=== PATIENT | male | born 1950 | race Caucasian/White ===

== ENCOUNTER → 2017-10-08 08:12 | Outpatient (CLI) | payer OTHER, SELFPAY ==
[2017-10-08 09:00] LABS: Cholesterol 182 mg/dL (140-199); HDL Cholesterol 54 mg/dL (40-60); LDL Cholesterol Calculated 102 mg/dL (<100); Triglycerides 131 mg/dL (35-150)
== END ==
PROVIDERS: PCP Internal Medicine; Visit Provider Internal Medicine
DX: E78.00 Pure hypercholesterolemia, unspecified (principal); Z53.9 Procedure and treatment not carried out, unspecified reason
CPT/HCPCS: 36415; 80061

== ENCOUNTER → 2017-10-08 10:47 | Outpatient (CLI) | payer OTHER, SELFPAY ==
--- NOTE | 2017-10-08 | DI.US.S_ITS ---
PROCEDURE: US ARTERIAL DUPLEX UE RT COMPARISON: None. INDICATIONS: SENSATION DISTURBANCE RT HAND FINDINGS: Triphasic waveforms with normal flow velocities are seen within the right subclavian, axillary, brachial, and radial artery. Biphasic waveform with normal flow velocity is seen within the right distal ulnar artery. IMPRESSION: No evidence of arterial insufficiency to the right upper extremity. Dictated by: Lorenza Pizarro M.D. on 10/08/2017 at 12:33 Approved by: Lorenza Pizarro M.D. on 10/08/2017 at 12:34
== END ==
PROVIDERS: Family Provider Internal Medicine; PCP Internal Medicine; Visit Provider Internal Medicine
DX: R20.8 Other disturbances of skin sensation (principal)
CPT/HCPCS: 36415; 80061; 93931

== ENCOUNTER → 2019-07-07 13:07 | Outpatient (CLI) | payer MEDICARE, OTHER, SELFPAY ==
--- NOTE | 2019-07-07 | DI.US.S_ITS ---
PROCEDURE: US CAROTID DOPPLER BI INDICATIONS: TIA TECHNIQUE: Color and pulse Doppler interrogation was performed of both carotid systems, with image documentation and velocity measurements. COMPARISON: None. FINDINGS: Stenosis calculations are based on SRU (Society of Radiologists in Ultrasound) criteria. Right side: Brachial blood pressure: 120/68 mm Hg. Common carotid artery peak systolic velocity: 100 cm/sec. Internal carotid artery peak systolic velocity: 78 cm/sec. Internal carotid artery end diastolic velocity: 29 cm/sec. External carotid artery peak systolic velocity: 78 cm/sec. ICA/CCA peak systolic ratio: 0.8. Mi scale imaging description: Moderate plaque Percent internal carotid artery stenosis: Less than 50%. Vertebral artery: Flow direction is antegrade. Left side: Brachial blood pressure: 123/70 mm Hg. Common carotid artery peak systolic velocity: 77 cm/sec. Internal carotid artery peak systolic velocity: 78 cm/sec. Internal carotid artery end diastolic velocity: 30 External carotid artery peak systolic velocity: 96 cm/sec. ICA/CCA peak systolic ratio: 1.0. Mi scale imaging description: Moderate scattered plaque. Percent internal carotid artery stenosis: Less than 50%. Vertebral artery: Flow direction is antegrade. IMPRESSION: Less than 50% bilateral internal carotid artery stenosis. Dictated by: Rayshawn MELCHOR Interpreted: Fredo Cosme MD on 07/07/2019 at 17:28 Approved by: Fredo Cosme M.D. on 07/07/2019 at 17:53
== END ==
PROVIDERS: Family Provider Internal Medicine; PCP Family Medicine; Referring Provider Family Medicine; Visit Provider Family Medicine
DX: I65.23 Occlusion and stenosis of bilateral carotid arteries (principal)
CPT/HCPCS: 93880

== ENCOUNTER → 2022-04-23 09:52 | Outpatient (CLI) | payer MEDICARE, OTHER, SELFPAY ==
--- NOTE | 2022-04-23 09:54 | DI.RAD.S_ITS ---
PROCEDURE: XR CHEST 2V INDICATIONS: Cough TECHNIQUE: 2 views of the chest were acquired. COMPARISON: [facility], , CHEST 2 VIEW, 10/11/2010, 14:58. FINDINGS: Surgical changes and devices: None. Lungs and pleura: Lungs are clear. No pleural effusions or pneumothorax. Mediastinum: Mediastinal contours are normal. Heart size is normal. Bones and chest wall: No suspicious bony abnormalities. Soft tissues appear unremarkable. IMPRESSION: No acute cardiopulmonary findings. Dictated by: Rocío Light M.D. on 04/23/2022 at 10:12 Approved by: Rocío Light M.D. on 04/23/2022 at 10:12
== END ==
PROVIDERS: Family Provider Internal Medicine; PCP Family Medicine; Referring Provider Registered Nurse; Visit Provider Registered Nurse
DX: R05.1 Acute cough (principal)
CPT/HCPCS: 0241U; 71046

== ENCOUNTER → 2022-04-23 10:22 | Outpatient (CLI) | payer MEDICARE, OTHER, SELFPAY ==
[2022-04-23 11:09] LABS: Influenza A - CEPHEID Flu A NEGATIVE (NEGATIVE); Influenza B - CEPHEID Flu B NEGATIVE (NEGATIVE); Respiratory Syncytial Virus Negative (Negative)
[2022-04-23 11:16] LABS: COVID-19 CEPHEID 4-PLEX PCR Negative (Negative)
== END ==
PROVIDERS: Family Provider Internal Medicine; PCP Family Medicine; Visit Provider Registered Nurse
DX: R05.9 Cough, unspecified (principal)
CPT/HCPCS: 0241U

== ENCOUNTER 2023-11-03 13:00 | Outpatient (RCR) | payer MEDICARE, OTHER, SELFPAY ==
--- NOTE | 2023-09-08 16:32 | PT.OIE ---
Current Diagnoses Pain in left shoulder (09/08/23) Other enthesopathies, not elsewhere classified (09/08/23) Abnormal posture (09/08/23) Weakness (09/08/23) Visit Care Team Role Provider Type Dashawn Reese MD Family Provider Non-Staff Primary Care Provider Specialty: Medical Address: [address] [place] [address], [id number] Email: Joo Hernandez MD Attending Provider Physician Referring Provider Specialty: Orthopedics Orthopedic Surgery Address: [address] [place] [address], [id number] Email: [email or web address] [facility] Initial Evaluation PT-OP-A Visit Information Start: 09/07/23 16:42 Freq: Status: Active Protocol: Document 09/08/23 15:19 [facility]AK (Rec: 09/08/23 16:43 [facility]AK [id number]) Out-Patient Physical Therapy Visit Information Visit Information Visit Type Initial Evaluation Visit Start Time 15:20 Visit Stop Time 16:10 Visit Number 1 Evaluation Information Evaluation Date 09/08/23 PT-OP-B Current Condition Start: 09/07/23 16:42 Freq: Status: Active Protocol: Document 09/08/23 15:19 SAK (Rec: 09/08/23 16:43 [facility] [id number]) Current Condition History of Current Condition Onset Date 9 month Current Complaints left shoulder pain History of Current Condition Last fall gradual onset left shoulder pain, initially noticed when was doing gardening trimming hedge and also noted he couldn't throw without pain. Saw orthopedist in April, had injection. Started doing exercises; wall slide, has gained ability to reach across his body. At this point reaching overhead, behind his back; can do everything but it hurts. States painful to reach back to put his arm in a coat Can' t lay on his left side. Had prior frozen shoulder right and reports has been trying some of exercises he previously did for that; states first repetition of an ex painful, tends to loosen as he goes. Pain interrupts his sleep. has foam roller, he hasn't used Prior Treatments and Tests x-ray; orthopedist stated no tear Treatment Goals Patient/Caregiver Goals Regain full active, painfree movement of his left shoulder. Prior Functional Status Baseline Function- ADL's Independent Baseline Function- Work/School indep activities around the house Baseline Function- Recreation/Hobbies gardening, backpacking indep no pain Current Functional Impairments (Reported) Functional Limitations- ADL's painful Functional Limitations- Work/School painful Functional Limitations- Recreation/ painful Hobbies PT-OP-C Subjective Start: 09/07/23 16:42 Freq: Status: Active Protocol: Document 09/08/23 15:19 [facility] (Rec: 09/08/23 16:43 [facility] [id number]) OP-PT Pain Assessment Location Left Shoulder Intensity 7 PT-OP-H Neuro Start: 09/07/23 16:42 Freq: Status: Active Protocol: Document 09/08/23 15:19 [facility] (Rec: 09/08/23 16:43 [facility] [id number]) Sensation Evaluation Gross Sensation Gross Sensation WNL PT-OP-J Posture/Palpation/Skin Start: 09/07/23 16:42 Freq: Status: Active Protocol: Document 09/08/23 15:19 [facility] (Rec: 09/08/23 16:43 [facility] [id number]) Posture Evaluation Position Sitting Head/C-Spine Posture Forward Head T-Spine Posture Increased Kyphosis L-Spine Posture Increased Lordosis Shoulder Posture (L) Rounded,(R) Rounded Scapula Posture (L) Protracted,(R) Protracted Arm Posture (L) Internally Rotated,(R) Internally Rotated Palpation Assessment Location upper trap Palpation Location left greater than right Palpation Findings Soft Tissue Tightness left shoulder Palpation Location ant,lat Palpation Findings Tenderness PT-OP-K Range of Motion Start: 09/07/23 16:42 Freq: Status: Active Protocol: Document 09/08/23 15:19 [facility] (Rec: 09/08/23 16:43 [facility] [id number]) Cervical Spine Range of Motion Cervical Spine Active ROM Limitations Soft Tissue Tightness,Bony Restriction Comments mod decrease all motions Shoulder Goniometric Range of Motion Shoulder Left Shoulder ROM WFL Yes Flexion 142 Extension 23 Abduction 150 Horizontal Abduction 85 Horizontal Adduction 15 External Rotation at 45 degrees 38 Abduction Internal Rotation Behind Back (text) L5 Right Shoulder ROM WFL Yes Internal Rotation Behind Back (text) T12 Shoulder ROM Limitations Shoulder ROM Limitations Soft Tissue Tightness,Pain PT-OP-L Special Tests Start: 09/07/23 16:42 Freq: Status: Active Protocol: Document 09/08/23 15:19 [facility] (Rec: 09/08/23 16:43 [facility] [id number]) Special Tests Shoulder Special Tests Elevation Impingement Test Results + Speed's Biceps Test Results - Drop Arm Rotator Cuff Test Results - PT-OP-Q Treatments Start: 09/07/23 16:42 Freq: Status: Active Protocol: Document 09/08/23 15:19 [facility] (Rec: 09/08/23 16:43 [facility] [id number]) Self-Care/Home Management Treatment Education Patient Education Home Exercise Program,Pain Management,Posture Other Education neutral posture and impaired posture contributions to dec shoulder function HEP; issued written HO and L2 TB Activities Self-Care/Home Management Activities thumbs forward alignment when taking walks PT-OP-T Assessment and Plan Start: 09/07/23 16:42 Freq: Status: Active Protocol: Document 09/08/23 15:19 [facility] (Rec: 09/08/23 16:43 [facility] [id number]) Physical Therapy Assessment Rehab Potential Rehabilitation Potential Good Evaluation Complexity Number of Personal Factors/Comorbidities 1-2 Number of Body Systems Impaired 3 Clinical Presentation at Evaluation Evolving Impairments Impairments Pain,Posture,ROM,Strength Goals Four Impairment weakness Short Term Goal (STG) Patient to be instructed in individualized, progressive HEP for purposes of strengthening and restoring normal scapulohumeral rhythm for left shoulder function STG Duration 10/25/23 Usp Goal (LTG) Patient to demonstrate 5/5 muscle strength left shoulder with normal scapulohumeral rhythm for restored left shoulder function LTG Duration 12/09/23 Three Impairment postural impairment Impairment forward head, rounded shoulders, IR josephine shoulders left greater than right Short Term Goal (STG) Patient to be instructed in neutral posture and exercises for postural correction STG Duration 10/25/23 Usp Goal (LTG) Patient will be independent and compliant with HEP and demonstrate improved posture statically and dynamically with function LTG Duration 12/09/23 Two Impairment activity intolerance Impairment Quickdash disability index score 42% Short Term Goal (STG) Decrease score by at least 50% as measure of improved activity tolerance and function STG Duration 10/25/23 Coin Machine Supervisor Goal (LTG) Decrease score by at least 75% as measure of improved activity tolerance and function LTG Duration 12/09/23 One Impairment pain left shoulder as high as 8/10 Short Term Goal (STG) Decrease pain to no greater than 4/10 with all usual activities including reaching overhead, behind his back, and donning his coat STG Duration 10/25/23 Usp Goal (LTG) Decrease pain to no greater than 2/10 with all usual activities including reaching overhead, behind his back, and donning his coat. LTG Duration 12/09/23 Assessment Summary Assessment Patient presents with function -limiting pain and ROM restrictions left shoulder in a capusular pattern. ROM ER 38, IR 58, flex 142, hor add 25 with some impingment symptoms. He has postural impairment of forward head and rounded shoulders and weakness in posterior chain shoulder musculature, worst in lower traps. Feel he would benefit from PT to decrease his pain and improve his shoulder ROM, strength, and function. Patient was instructed in neutral posture and affects of impaired posture on shoulder function. Instructed in initial HEP and issued written HO and L2 TB. POC was discussed and patient was in agreement. Physical Therapy Plan Frequency and Duration Frequency of Treatment 2x/Week Duration of treatment (weeks) 12 Plan of Care Start Date 09/08/23 Plan of Care End Date 12/09/23 Therapeutic Interventions Therapeutic Interventions Home Exercise Program,Joint Mobilizations,Manual Therapy, Neuromuscular Re-education, Patient/Caregiver Education, Self-Care/Home Management,Soft Tissue Mobilization,Taping, Therapeutic Activities, Therapeutic Exercises Modalities Cold Pack/Ice Massage,Electric Stimulation,Hot Packs, Infrared Therapy,Iontophoresis ,Ultrasound Next Visit Focus/Plan Next Note Type Treatment Note Next Visit Plan ASsess response to first visit , review HEP. Supine foam roller exercises for pec stretching and theraband strengthening for shoulder (T' s and Y's)
--- NOTE | 2023-09-08 16:33 | PT.OPPOC ---
Physical, Occupational & Speech Therapy At [facility] Current Diagnoses Pain in left shoulder (09/08/23) Other enthesopathies, not elsewhere classified (09/08/23) Abnormal posture (09/08/23) Weakness (09/08/23) Visit Care Team Role Provider Type Dashawn Reese MD Family Provider Non-Staff Primary Care Provider Specialty: Medical Address: [address] [place] [address], [phone] Email: Joo Hernandez MD Attending Provider Physician Referring Provider Specialty: Orthopedics Orthopedic Surgery Address: [address] [place] [address], [id number] Email: [email or web address] Plan Of Care PT-OP-T Assessment and Plan Start: 09/07/23 16:42 Freq: Status: Active Protocol: Document 09/08/23 15:19 [facility] (Rec: 09/08/23 16:43 [facility] [id number]) Physical Therapy Assessment Rehab Potential Rehabilitation Potential Good Evaluation Complexity Number of Personal Factors/Comorbidities 1-2 Number of Body Systems Impaired 3 Clinical Presentation at Evaluation Evolving Impairments Impairments Pain,Posture,ROM,Strength Goals Four Impairment weakness Short Term Goal (STG) Patient to be instructed in individualized, progressive HEP for purposes of strengthening and restoring normal scapulohumeral rhythm for left shoulder function STG Duration 10/25/23 Mannequin Decorator Goal (LTG) Patient to demonstrate 5/5 muscle strength left shoulder with normal scapulohumeral rhythm for restored left shoulder function LTG Duration 12/09/23 Three Impairment postural impairment Impairment forward head, rounded shoulders, IR josephine shoulders left greater than right Short Term Goal (STG) Patient to be instructed in neutral posture and exercises for postural correction STG Duration 10/25/23 Half-Way Goal (LTG) Patient will be independent and compliant with HEP and demonstrate improved posture statically and dynamically with function LTG Duration 12/09/23 Two Impairment activity intolerance Impairment Quickdash disability index score 42% Short Term Goal (STG) Decrease score by at least 50% as measure of improved activity tolerance and function STG Duration 10/25/23 Mannequin Decorator Goal (LTG) Decrease score by at least 75% as measure of improved activity tolerance and function LTG Duration 12/09/23 One Impairment pain left shoulder as high as 8/10 Short Term Goal (STG) Decrease pain to no greater than 4/10 with all usual activities including reaching overhead, behind his back, and donning his coat STG Duration 10/25/23 Mannequin Decorator Goal (LTG) Decrease pain to no greater than 2/10 with all usual activities including reaching overhead, behind his back, and donning his coat. LTG Duration 12/09/23 Assessment Summary Assessment Patient presents with function -limiting pain and ROM restrictions left shoulder in a capusular pattern. ROM ER 38, IR 58, flex 142, hor add 25 with some impingment symptoms. He has postural impairment of forward head and rounded shoulders and weakness in posterior chain shoulder musculature, worst in lower traps. Feel he would benefit from PT to decrease his pain and improve his shoulder ROM, strength, and function. Patient was instructed in neutral posture and affects of impaired posture on shoulder function. Instructed in initial HEP and issued written HO and L2 TB. POC was discussed and patient was in agreement. Physical Therapy Plan Frequency and Duration Frequency of Treatment 2x/Week Duration of treatment (weeks) 12 Plan of Care Start Date 09/08/23 Plan of Care End Date 12/09/23 Therapeutic Interventions Therapeutic Interventions Home Exercise Program,Joint Mobilizations,Manual Therapy, Neuromuscular Re-education, Patient/Caregiver Education, Self-Care/Home Management,Soft Tissue Mobilization,Taping, Therapeutic Activities, Therapeutic Exercises Modalities Cold Pack/Ice Massage,Electric Stimulation,Hot Packs, Infrared Therapy,Iontophoresis ,Ultrasound Next Visit Focus/Plan Next Note Type Treatment Note Next Visit Plan ASsess response to first visit , review HEP. Supine foam roller exercises for pec stretching and theraband strengthening for shoulder (T' s and Y's) Plan of Care Dates Plan of Care Start Date 09/08/23 Plan of Care End Date 12/09/23 Electronically Signed by: Flory Moya PT 09/14/23 2084 If you are in agreement with this Plan of Care, please return a signed and dated copy. I have reviewed this Plan of Care and certify that the skilled therapy services above are required to meet the patient?s needs. Physician Signature Date Printed Name and Credentials Clinical Instructor Signature Printed Name and Credentials
--- NOTE | 2023-09-15 16:12 | PT.OTN ---
Current Diagnoses Pain in left shoulder (09/15/23) Other enthesopathies, not elsewhere classified (09/15/23) Abnormal posture (09/15/23) Weakness (09/15/23) Physical Therapy Treatment Note PT-OP-A Visit Information Start: 09/07/23 16:42 Freq: Status: Active Protocol: Document 09/15/23 13:42 SAK (Rec: 09/15/23 14:34 SAK [id number]) Out-Patient Physical Therapy Visit Information Visit Information Visit Type Treatment Note Visit Start Time 13:42 Visit Stop Time 14:31 Visit Number 2 Evaluation Information Evaluation Date 09/08/23 PT-OP-B Current Condition Start: 09/07/23 16:42 Freq: Status: Active Protocol: Document 09/15/23 13:42 SAK (Rec: 09/15/23 14:34 SAK [id number]) Current Condition History of Current Condition Onset Date 9 month Current Complaints left shoulder pain History of Current Condition Last fall gradual onset left shoulder pain, initially noticed when was doing gardening trimming hedge and also noted he couldn't throw without pain. Saw orthopedist in April, had injection. Started doing exercises; wall slide, has gained ability to reach across his body. At this point reaching overhead, behind his back; can do everything but it hurts. States painful to reach back to put his arm in a coat Can' t lay on his left side. Had prior frozen shoulder right and reports has been trying some of exercises he previously did for that; states first repetition of an ex painful, tends to loosen as he goes. Pain interrupts his sleep. has foam roller, he hasn't used Prior Treatments and Tests x-ray; orthopedist stated no tear Treatment Goals Patient/Caregiver Goals Regain full active, painfree movement of his left shoulder. PT-OP-C Subjective Start: 09/07/23 16:42 Freq: Status: Active Protocol: Document 09/15/23 13:42 SAK (Rec: 09/15/23 14:34 SAK [id number]) OP-PT Subjective Patient Comments Patient Comments Pain has increased, not sure if doing exercises correctly. PT-OP-H Neuro Start: 09/07/23 16:42 Freq: Status: Active Protocol: Document 09/08/23 15:19 SAK (Rec: 09/08/23 16:43 SAK [id number]) Sensation Evaluation Gross Sensation Gross Sensation WNL PT-OP-J Posture/Palpation/Skin Start: 09/07/23 16:42 Freq: Status: Active Protocol: Document 09/08/23 15:19 [facility] (Rec: 09/08/23 16:43 [facility] [id number]) Posture Evaluation Position Sitting Head/C-Spine Posture Forward Head T-Spine Posture Increased Kyphosis L-Spine Posture Increased Lordosis Shoulder Posture (L) Rounded,(R) Rounded Scapula Posture (L) Protracted,(R) Protracted Arm Posture (L) Internally Rotated,(R) Internally Rotated Palpation Assessment Location upper trap Palpation Location left greater than right Palpation Findings Soft Tissue Tightness left shoulder Palpation Location ant,lat Palpation Findings Tenderness PT-OP-K Range of Motion Start: 09/07/23 16:42 Freq: Status: Active Protocol: Document 09/08/23 15:19 [facility] (Rec: 09/08/23 16:43 [facility] [id number]) Cervical Spine Range of Motion Cervical Spine Active ROM Limitations Soft Tissue Tightness,Bony Restriction Comments mod decrease all motions Shoulder Goniometric Range of Motion Shoulder Left Shoulder ROM WFL Yes Flexion 142 Extension 23 Abduction 150 Horizontal Abduction 85 Horizontal Adduction 15 External Rotation at 45 degrees 38 Abduction Internal Rotation Behind Back (text) L5 Right Shoulder ROM WFL Yes Internal Rotation Behind Back (text) T12 Shoulder ROM Limitations Shoulder ROM Limitations Soft Tissue Tightness,Pain PT-OP-L Special Tests Start: 09/07/23 16:42 Freq: Status: Active Protocol: Document 09/08/23 15:19 [facility] (Rec: 09/08/23 16:43 [facility] [id number]) Special Tests Shoulder Special Tests Elevation Impingement Test Results + Speed's Biceps Test Results - Drop Arm Rotator Cuff Test Results - PT-OP-Q Treatments Start: 09/07/23 16:42 Freq: Status: Active Protocol: Document 09/15/23 13:42 [facility] (Rec: 09/15/23 14:34 [facility] [id number]) Therapeutic Exercises Supine Exercises serratus punch Comments next session D2 Supine Exercise Name flex Resistance L1 TB Equipment Used foam roller Reps/Minutes 10x shoulder flex Supine Exercise Name 90 to max ROM (painfree) Equipment Used foam roller Reps/Minutes 10x5 Comments cues for painfree ROM pec stretch Equipment Used foam roller Reps/Minutes 2x30 Comments pillows under left UE at less than 90 Prone Exercises Y Comments unable T Comments unable I Reps/Minutes 10x Comments cues for scap retr Sidelying Exercises open book Reps/Minutes 5x Comments cues for painfree ROM Sitting Exercises seated ball roll shld flex Reps/Minutes 5x5 pulleys Sitting Exercise Name flexion and scaption Reps/Minutes 10x Standing Exercises sh ER Reps/Minutes 10x Comments cues to slow down row, sh ext Equipment Used L2 TB Reps/Minutes 10x Comments cues to perform slower, emphasis on scapular retraction Self-Care/Home Management Treatment Education Patient Education Home Exercise Program,Pain Management,Posture,Safety PT-OP-R Modalities Start: 09/07/23 16:42 Freq: Status: Active Protocol: Document 09/15/23 13:42 [facility] (Rec: 09/15/23 16:10 [facility] [id number]) Infrared Treatment Treatment Left Anterior Shoulder Body Position Sitting Continuous/Pulsed Continuous Program or Protocal chronic soft tissue pain and stiffness Comments 5 locations PT-OP-T Assessment and Plan Start: 09/07/23 16:42 Freq: Status: Active Protocol: Document 09/15/23 13:42 [facility] (Rec: 09/15/23 14:34 [facility] [id number]) Physical Therapy Assessment Goals Four Impairment weakness Short Term Goal (STG) Patient to be instructed in individualized, progressive HEP for purposes of strengthening and restoring normal scapulohumeral rhythm for left shoulder function STG Duration 10/25/23 Intermediate Goal (LTG) Patient to demonstrate 5/5 muscle strength left shoulder with normal scapulohumeral rhythm for restored left shoulder function LTG Duration 12/09/23 Three Impairment postural impairment Impairment forward head, rounded shoulders, IR josephine shoulders left greater than right Short Term Goal (STG) Patient to be instructed in neutral posture and exercises for postural correction STG Duration 10/25/23 Intermediate Goal (LTG) Patient will be independent and compliant with HEP and demonstrate improved posture statically and dynamically with function LTG Duration 12/09/23 Two Impairment activity intolerance Impairment Quickdash disability index score 42% Short Term Goal (STG) Decrease score by at least 50% as measure of improved activity tolerance and function STG Duration 10/25/23 Intermediate Goal (LTG) Decrease score by at least 75% as measure of improved activity tolerance and function LTG Duration 12/09/23 One Impairment pain left shoulder as high as 8/10 Short Term Goal (STG) Decrease pain to no greater than 4/10 with all usual activities including reaching overhead, behind his back, and donning his coat STG Duration 10/25/23 Lag Screwer Goal (LTG) Decrease pain to no greater than 2/10 with all usual activities including reaching overhead, behind his back, and donning his coat. LTG Duration 12/09/23 Assessment Summary Assessment Patient appears to have been overdoing exercise and doing a couple exercises that have been exacerbating his pain; after education and review patient demonstrated good understanding of need to not push into pain or overdo activities and exercises. Added supine T and Y over foam roller to HEP, corrected open book, added seated ball roll and wall slide. Trial cold laser adjunct to treatment. Physical Therapy Plan Frequency and Duration Frequency of Treatment 2x/Week Duration of treatment (weeks) 12 Plan of Care Start Date 09/08/23 Plan of Care End Date 12/09/23 Therapeutic Interventions Therapeutic Interventions Home Exercise Program,Joint Mobilizations,Manual Therapy, Neuromuscular Re-education, Patient/Caregiver Education, Self-Care/Home Management,Soft Tissue Mobilization,Taping, Therapeutic Activities, Therapeutic Exercises Modalities Cold Pack/Ice Massage,Electric Stimulation,Hot Packs, Infrared Therapy,Iontophoresis ,Ultrasound Next Visit Focus/Plan Next Note Type Treatment Note Next Visit Plan Review HEP, progression of HEP as tolerated for ROM and strengthening left shoulder. Consider kiniesiotape for pain management and postural correction.
--- NOTE | 2023-09-22 12:12 | PT.OTN ---
Current Diagnoses Pain in left shoulder (09/22/23) Other enthesopathies, not elsewhere classified (09/22/23) Abnormal posture (09/22/23) Weakness (09/22/23) Physical Therapy Treatment Note PT-OP-A Visit Information Start: 09/07/23 16:42 Freq: Status: Active Protocol: Document 09/22/23 11:14 SAK (Rec: 09/22/23 12:11 [facility] [id number]) Out-Patient Physical Therapy Visit Information Visit Information Visit Type Treatment Note Visit Start Time 11:14 Visit Number 3 Evaluation Information Evaluation Date 09/08/23 PT-OP-B Current Condition Start: 09/07/23 16:42 Freq: Status: Active Protocol: Document 09/22/23 11:14 SAK (Rec: 09/22/23 12:11 [facility] [id number]) Current Condition History of Current Condition Onset Date 9 month Current Complaints left shoulder pain History of Current Condition Last fall gradual onset left shoulder pain, initially noticed when was doing gardening trimming hedge and also noted he couldn't throw without pain. Saw orthopedist in April, had injection. Started doing exercises; wall slide, has gained ability to reach across his body. At this point reaching overhead, behind his back; can do everything but it hurts. States painful to reach back to put his arm in a coat Can' t lay on his left side. Had prior frozen shoulder right and reports has been trying some of exercises he previously did for that; states first repetition of an ex painful, tends to loosen as he goes. Pain interrupts his sleep. has foam roller, he hasn't used Prior Treatments and Tests x-ray; orthopedist stated no tear Treatment Goals Patient/Caregiver Goals Regain full active, painfree movement of his left shoulder. PT-OP-C Subjective Start: 09/07/23 16:42 Freq: Status: Active Protocol: Document 09/22/23 11:14 SAK (Rec: 09/22/23 12:11 [facility] [id number]) OP-PT Subjective Patient Comments Patient Comments Making some progress, not sure if doing foam roller exercises correctly, needs pictures. Most pain when do something sudden. Still pain with laying on left side. A little easier reaching back to put coat on. Has been taking Alleve 2x/day for 1 week; that may be helping. PT-OP-H Neuro Start: 09/07/23 16:42 Freq: Status: Active Protocol: Document 09/08/23 15:19 [facility] (Rec: 09/08/23 16:43 [facility] [id number]) Sensation Evaluation Gross Sensation Gross Sensation WNL PT-OP-J Posture/Palpation/Skin Start: 09/07/23 16:42 Freq: Status: Active Protocol: Document 09/08/23 15:19 [facility] (Rec: 09/08/23 16:43 [facility] [id number]) Posture Evaluation Position Sitting Head/C-Spine Posture Forward Head T-Spine Posture Increased Kyphosis L-Spine Posture Increased Lordosis Shoulder Posture (L) Rounded,(R) Rounded Scapula Posture (L) Protracted,(R) Protracted Arm Posture (L) Internally Rotated,(R) Internally Rotated Palpation Assessment Location upper trap Palpation Location left greater than right Palpation Findings Soft Tissue Tightness left shoulder Palpation Location ant,lat Palpation Findings Tenderness PT-OP-K Range of Motion Start: 09/07/23 16:42 Freq: Status: Active Protocol: Document 09/08/23 15:19 [facility] (Rec: 09/08/23 16:43 [facility] [id number]) Cervical Spine Range of Motion Cervical Spine Active ROM Limitations Soft Tissue Tightness,Bony Restriction Comments mod decrease all motions Shoulder Goniometric Range of Motion Shoulder Left Shoulder ROM WFL Yes Flexion 142 Extension 23 Abduction 150 Horizontal Abduction 85 Horizontal Adduction 15 External Rotation at 45 degrees 38 Abduction Internal Rotation Behind Back (text) L5 Right Shoulder ROM WFL Yes Internal Rotation Behind Back (text) T12 Shoulder ROM Limitations Shoulder ROM Limitations Soft Tissue Tightness,Pain PT-OP-L Special Tests Start: 09/07/23 16:42 Freq: Status: Active Protocol: Document 09/08/23 15:19 [facility] (Rec: 09/08/23 16:43 [facility] [id number]) Special Tests Shoulder Special Tests Elevation Impingement Test Results + Speed's Biceps Test Results - Drop Arm Rotator Cuff Test Results - PT-OP-Q Treatments Start: 09/07/23 16:42 Freq: Status: Active Protocol: Document 09/22/23 11:14 [facility] (Rec: 09/22/23 12:11 [facility] [id number]) Gym Equipment Cable Column (Body Solid) scap shrug Resistance 30# Reps/Time 10x5 lat pull Resistance 30# Reps/Time 10x5 Therapeutic Exercises Supine Exercises serratus punch Resistance 3# Reps/Minutes 10x D2 Supine Exercise Name flex Resistance L1 TB Equipment Used foam roller Reps/Minutes 10x shoulder flex Supine Exercise Name 90 to max ROM (painfree) Equipment Used foam roller, wand Reps/Minutes 10x5 Comments cues for painfree ROM pec stretch Equipment Used foam roller Reps/Minutes 2x30 Prone Exercises Y Equipment Used therapy ball Reps/Minutes 10x T Equipment Used therapy ball Reps/Minutes 10x Standing Exercises sh ER Reps/Minutes 10x row, sh ext Equipment Used L2 TB Reps/Minutes 10x Comments cues for scapular activation Manual Therapy Treatment Taping left shoulder Skin Inspection intact Comments I strip T10 to anterior shoulder I strip mid scap to facil retraction Self-Care/Home Management Treatment Education Patient Education Home Exercise Program,Pain Management,Posture,Safety PT-OP-R Modalities Start: 09/07/23 16:42 Freq: Status: Active Protocol: Document 09/15/23 13:42 [facility] (Rec: 09/15/23 16:10 [facility] [id number]) Infrared Treatment Treatment Left Anterior Shoulder Body Position Sitting Continuous/Pulsed Continuous Program or Protocal chronic soft tissue pain and stiffness Comments 5 locations PT-OP-T Assessment and Plan Start: 09/07/23 16:42 Freq: Status: Active Protocol: Document 09/22/23 11:14 [facility] (Rec: 09/22/23 12:11 [facility] [id number]) Physical Therapy Assessment Goals Four Impairment weakness Short Term Goal (STG) Patient to be instructed in individualized, progressive HEP for purposes of strengthening and restoring normal scapulohumeral rhythm for left shoulder function STG Duration 10/25/23 Halfway Goal (LTG) Patient to demonstrate 5/5 muscle strength left shoulder with normal scapulohumeral rhythm for restored left shoulder function LTG Duration 12/09/23 Three Impairment postural impairment Impairment forward head, rounded shoulders, IR josephine shoulders left greater than right Short Term Goal (STG) Patient to be instructed in neutral posture and exercises for postural correction STG Duration 10/25/23 Retail Management Keyholder Goal (LTG) Patient will be independent and compliant with HEP and demonstrate improved posture statically and dynamically with function LTG Duration 12/09/23 Two Impairment activity intolerance Impairment Quickdash disability index score 42% Short Term Goal (STG) Decrease score by at least 50% as measure of improved activity tolerance and function STG Duration 10/25/23 Retail Management Keyholder Goal (LTG) Decrease score by at least 75% as measure of improved activity tolerance and function LTG Duration 12/09/23 One Impairment pain left shoulder as high as 8/10 Short Term Goal (STG) Decrease pain to no greater than 4/10 with all usual activities including reaching overhead, behind his back, and donning his coat STG Duration 10/25/23 Halfway Goal (LTG) Decrease pain to no greater than 2/10 with all usual activities including reaching overhead, behind his back, and donning his coat. LTG Duration 12/09/23 Progress Towards Goals Progress Towards Goals Progressing Toward Goals Assessment Summary Assessment Progress toward goals, patient demonstrating improved scapular activation and awareness. Trial KT tape for postural correction today. Issued updated written HO. Good compliance to HEP. Physical Therapy Plan Frequency and Duration Frequency of Treatment 2x/Week Duration of treatment (weeks) 12 Plan of Care Start Date 09/08/23 Plan of Care End Date 12/09/23 Therapeutic Interventions Therapeutic Interventions Home Exercise Program,Joint Mobilizations,Manual Therapy, Neuromuscular Re-education, Patient/Caregiver Education, Self-Care/Home Management,Soft Tissue Mobilization,Taping, Therapeutic Activities, Therapeutic Exercises Modalities Cold Pack/Ice Massage,Electric Stimulation,Hot Packs, Infrared Therapy,Iontophoresis ,Ultrasound Next Visit Focus/Plan Next Note Type Treatment Note Next Visit Plan Assess response to today's session, review HEP and progress as indicated. Consider Body Blade.
--- NOTE | 2023-10-07 11:13 | PT.OTN ---
Current Diagnoses Pain in left shoulder (10/07/23) Other enthesopathies, not elsewhere classified (10/07/23) Abnormal posture (10/07/23) Weakness (10/07/23) Physical Therapy Treatment Note PT-OP-A Visit Information Start: 09/07/23 16:42 Freq: Status: Active Protocol: Document 10/07/23 10:33 SP (Rec: 10/07/23 11:29 SP [id number]) Out-Patient Physical Therapy Visit Information Visit Information Visit Type Treatment Note Visit Start Time 10:33 Visit Stop Time 11:13 Visit Number 4 Number of PRODUCT DEVELOPMENT SCIENTIST Visits 1 Evaluation Information Evaluation Date 09/08/23 PT-OP-B Current Condition Start: 09/07/23 16:42 Freq: Status: Active Protocol: Document 09/22/23 11:14 SAK (Rec: 09/22/23 12:11 SAK [id number]) Current Condition History of Current Condition Onset Date 9 month Current Complaints left shoulder pain History of Current Condition Last fall gradual onset left shoulder pain, initially noticed when was doing gardening trimming hedge and also noted he couldn't throw without pain. Saw orthopedist in April, had injection. Started doing exercises; wall slide, has gained ability to reach across his body. At this point reaching overhead, behind his back; can do everything but it hurts. States painful to reach back to put his arm in a coat Can' t lay on his left side. Had prior frozen shoulder right and reports has been trying some of exercises he previously did for that; states first repetition of an ex painful, tends to loosen as he goes. Pain interrupts his sleep. has foam roller, he hasn't used Prior Treatments and Tests x-ray; orthopedist stated no tear Treatment Goals Patient/Caregiver Goals Regain full active, painfree movement of his left shoulder. PT-OP-C Subjective Start: 09/07/23 16:42 Freq: Status: Active Protocol: Document 10/07/23 10:33 SP (Rec: 10/07/23 11:29 SP [id number]) OP-PT Subjective Patient Comments Patient Comments Does HEP 1st thing in Am with all HOs. Wants to review form with few ex. Does resistance 3x/wk then flexibliity next day. Wants to return to weights previously performed requested trial some today for proper form and proper wt to start. Was previously using 5 # DB. PT-OP-H Neuro Start: 09/07/23 16:42 Freq: Status: Active Protocol: Document 09/08/23 15:19 [facility] (Rec: 09/08/23 16:43 [facility] [id number]) Sensation Evaluation Gross Sensation Gross Sensation WNL PT-OP-J Posture/Palpation/Skin Start: 09/07/23 16:42 Freq: Status: Active Protocol: Document 09/08/23 15:19 [facility] (Rec: 09/08/23 16:43 [facility] [id number]) Posture Evaluation Position Sitting Head/C-Spine Posture Forward Head T-Spine Posture Increased Kyphosis L-Spine Posture Increased Lordosis Shoulder Posture (L) Rounded,(R) Rounded Scapula Posture (L) Protracted,(R) Protracted Arm Posture (L) Internally Rotated,(R) Internally Rotated Palpation Assessment Location upper trap Palpation Location left greater than right Palpation Findings Soft Tissue Tightness left shoulder Palpation Location ant,lat Palpation Findings Tenderness PT-OP-K Range of Motion Start: 09/07/23 16:42 Freq: Status: Active Protocol: Document 09/08/23 15:19 [facility] (Rec: 09/08/23 16:43 [facility] [id number]) Cervical Spine Range of Motion Cervical Spine Active ROM Limitations Soft Tissue Tightness,Bony Restriction Comments mod decrease all motions Shoulder Goniometric Range of Motion Shoulder Left Shoulder ROM WFL Yes Flexion 142 Extension 23 Abduction 150 Horizontal Abduction 85 Horizontal Adduction 15 External Rotation at 45 degrees 38 Abduction Internal Rotation Behind Back (text) L5 Right Shoulder ROM WFL Yes Internal Rotation Behind Back (text) T12 Shoulder ROM Limitations Shoulder ROM Limitations Soft Tissue Tightness,Pain PT-OP-L Special Tests Start: 09/07/23 16:42 Freq: Status: Active Protocol: Document 09/08/23 15:19 [facility] (Rec: 09/08/23 16:43 [facility] [id number]) Special Tests Shoulder Special Tests Elevation Impingement Test Results + Speed's Biceps Test Results - Drop Arm Rotator Cuff Test Results - PT-OP-Q Treatments Start: 09/07/23 16:42 Freq: Status: Active Protocol: Document 10/07/23 10:33 SP (Rec: 10/07/23 11:29 SP [id number]) Therapeutic Exercises Supine Exercises D2 Supine Exercise Name flex and ext Resistance L1>3 eyak green TB Equipment Used foam roller Reps/Minutes 10x each shoulder flex Supine Exercise Name 1. FF 2. HABD 3. Ws (ER/IR then into Ys/return) 4. DB Resistance 1-3. TB #3 eyak green 4. 3# DB FF, HABD Equipment Used foam roller along spine Reps/Minutes x15 reps each Comments cues for painfree ROM little slower pacing pec stretch Equipment Used foam roller Reps/Minutes 30 Comments cued breath Standing Exercises IR ROM Standing Exercise Name assessed behind back approx T9 Equipment Used Next trial fortunato vs towel Comments cued reach across back 1st then help up with towel DB Standing Exercise Name 1. ABD to 90 deg 2. bent over fly Side bilateral Resistance ABD 1-2# DB, bent over fly 2# DB Equipment Used mirror for self feedback head/ spinal posture Reps/Minutes 5 reps -pnfree tolerance Comments cued elongated posturing with chin tuck neutral spine wall posture Standing Exercise Name HEP HOs review Reps/Minutes 30 SH x2 reps Comments cued spine roll up, LS toward wall, Ys off wall Standing Exercise Name HEP HOs review Side bilateral Resistance Tb #3 eyak green Reps/Minutes x10 Comments good form, improved confidence PT-OP-R Modalities Start: 09/07/23 16:42 Freq: Status: Active Protocol: Document 09/15/23 13:42 SAK (Rec: 09/15/23 16:10 SAK [id number]) Infrared Treatment Treatment Left Anterior Shoulder Body Position Sitting Continuous/Pulsed Continuous Program or Protocal chronic soft tissue pain and stiffness Comments 5 locations PT-OP-T Assessment and Plan Start: 09/07/23 16:42 Freq: Status: Active Protocol: Document 10/07/23 10:33 SP (Rec: 10/07/23 11:29 SP [id number]) Physical Therapy Assessment Goals Four Impairment weakness Short Term Goal (STG) Patient to be instructed in individualized, progressive HEP for purposes of strengthening and restoring normal scapulohumeral rhythm for left shoulder function STG Duration 10/25/23 Director Life Goal (LTG) Patient to demonstrate 5/5 muscle strength left shoulder with normal scapulohumeral rhythm for restored left shoulder function LTG Duration 12/09/23 Three Impairment postural impairment Impairment forward head, rounded shoulders, IR josephine shoulders left greater than right Short Term Goal (STG) Patient to be instructed in neutral posture and exercises for postural correction STG Duration 10/25/23 Director Life Goal (LTG) Patient will be independent and compliant with HEP and demonstrate improved posture statically and dynamically with function LTG Duration 12/09/23 Two Impairment activity intolerance Impairment Quickdash disability index score 42% Short Term Goal (STG) Decrease score by at least 50% as measure of improved activity tolerance and function STG Duration 10/25/23 Director Life Goal (LTG) Decrease score by at least 75% as measure of improved activity tolerance and function LTG Duration 12/09/23 One Impairment pain left shoulder as high as 8/10 Short Term Goal (STG) Decrease pain to no greater than 4/10 with all usual activities including reaching overhead, behind his back, and donning his coat STG Duration 10/25/23 Residential Goal (LTG) Decrease pain to no greater than 2/10 with all usual activities including reaching overhead, behind his back, and donning his coat. LTG Duration 12/09/23 Assessment Summary Assessment Pt progressing in pnfree ROM and resisted ther ex today. Cues for slower pacing supine foam roller ther ex, body positioning during wall posture and form with ability to add resistance Ys off wall. He reports no pain and feels good to be progressing return to prior ex today. Only new added was ABD 90 deg /c ER TB #3 supine over foam roller then W<>Ys found great to help increase rotation range over head. This will support putting things up on shelves. Physical Therapy Plan Frequency and Duration Frequency of Treatment 2x/Week Duration of treatment (weeks) 12 Plan of Care Start Date 09/08/23 Plan of Care End Date 12/09/23 Therapeutic Interventions Therapeutic Interventions Home Exercise Program,Joint Mobilizations,Manual Therapy, Neuromuscular Re-education, Patient/Caregiver Education, Self-Care/Home Management,Soft Tissue Mobilization,Taping, Therapeutic Activities, Therapeutic Exercises Modalities Cold Pack/Ice Massage,Electric Stimulation,Hot Packs, Infrared Therapy,Iontophoresis ,Ultrasound Next Visit Focus/Plan Next Note Type Treatment Note Next Visit Plan Assess response to last tx, review PT HEP and worked on progresion with some past self ex supine and standing. PT POC: Consider Body Blade. Trial forearm plank to incorporate WB and core.
--- NOTE | 2023-11-03 13:00 | PT.OTN ---
Current Diagnoses Pain in left shoulder (11/03/23) Other enthesopathies, not elsewhere classified (11/03/23) Abnormal posture (11/03/23) Weakness (11/03/23) Physical Therapy Treatment Note PT-OP-A Visit Information Start: 09/07/23 16:42 Freq: Status: Active Protocol: Document 11/03/23 13:00 SAK (Rec: 11/03/23 13:08 [facility] [id number]) Out-Patient Physical Therapy Visit Information Visit Information Visit Type Treatment Note Visit Start Time 13:01 Visit Stop Time 13:46 Visit Number 5 Evaluation Information Evaluation Date 09/08/23 PT-OP-B Current Condition Start: 09/07/23 16:42 Freq: Status: Active Protocol: Document 11/03/23 13:00 [facility] (Rec: 11/03/23 13:08 [facility] [id number]) Current Condition History of Current Condition Onset Date 9 month Current Complaints left shoulder pain History of Current Condition Last fall gradual onset left shoulder pain, initially noticed when was doing gardening trimming hedge and also noted he couldn't throw without pain. Saw orthopedist in April, had injection. Started doing exercises; wall slide, has gained ability to reach across his body. At this point reaching overhead, behind his back; can do everything but it hurts. States painful to reach back to put his arm in a coat Can' t lay on his left side. Had prior frozen shoulder right and reports has been trying some of exercises he previously did for that; states first repetition of an ex painful, tends to loosen as he goes. Pain interrupts his sleep. has foam roller, he hasn't used Prior Treatments and Tests x-ray; orthopedist stated no tear PT-OP-C Subjective Start: 09/07/23 16:42 Freq: Status: Active Protocol: Document 11/03/23 13:00 SAK (Rec: 11/03/23 13:08 [facility] [id number]) OP-PT Subjective Patient Comments Patient Comments Accidentally touched hot bower, jerked his am back and fell to his knees in pain. Still can 't lay on ghis left side. Sees his doctor tomorrow. WAnts to do an assessemtn, feels treading water with PT. PT-OP-H Neuro Start: 09/07/23 16:42 Freq: Status: Active Protocol: Document 09/08/23 15:19 [facility] (Rec: 09/08/23 16:43 [facility] [id number]) Sensation Evaluation Gross Sensation Gross Sensation WNL PT-OP-J Posture/Palpation/Skin Start: 09/07/23 16:42 Freq: Status: Active Protocol: Document 09/08/23 15:19 [facility] (Rec: 09/08/23 16:43 [facility] [id number]) Posture Evaluation Position Sitting Head/C-Spine Posture Forward Head T-Spine Posture Increased Kyphosis L-Spine Posture Increased Lordosis Shoulder Posture (L) Rounded,(R) Rounded Scapula Posture (L) Protracted,(R) Protracted Arm Posture (L) Internally Rotated,(R) Internally Rotated Palpation Assessment Location upper trap Palpation Location left greater than right Palpation Findings Soft Tissue Tightness left shoulder Palpation Location ant,lat Palpation Findings Tenderness PT-OP-K Range of Motion Start: 09/07/23 16:42 Freq: Status: Active Protocol: Document 11/03/23 13:08 [facility] (Rec: 11/03/23 13:47 [facility] [id number]) Shoulder Goniometric Range of Motion Shoulder Left Testing Position 154 Abduction 159 Horizontal Abduction 92 Horizontal Adduction 30 Internal Rotation Behind Back (text) L4 PT-OP-L Special Tests Start: 09/07/23 16:42 Freq: Status: Active Protocol: Document 09/08/23 15:19 [facility] (Rec: 09/08/23 16:43 [facility] [id number]) Special Tests Shoulder Special Tests Elevation Impingement Test Results + Speed's Biceps Test Results - Drop Arm Rotator Cuff Test Results - PT-OP-Q Treatments Start: 09/07/23 16:42 Freq: Status: Active Protocol: Document 11/03/23 13:00 [facility] (Rec: 11/04/23 08:04 [facility] [id number]) Manual Therapy Treatment Soft Tissue Mobilization periscap Comments next session UT, biceps, deltoid Mobilization Type Myofascial Release,Strumming, Sustained Pressure Body Position Supine Joint Mobilizations AC Comments consider next session GH Direction post, inf Grade III Body Position Supine Comments oscillations Self-Care/Home Management Treatment Education Patient Education Home Exercise Program,Posture PT-OP-R Modalities Start: 09/07/23 16:42 Freq: Status: Active Protocol: Document 09/15/23 13:42 [facility] (Rec: 09/15/23 16:10 [facility] [id number]) Infrared Treatment Treatment Left Anterior Shoulder Body Position Sitting Continuous/Pulsed Continuous Program or Protocal chronic soft tissue pain and stiffness Comments 5 locations PT-OP-T Assessment and Plan Start: 09/07/23 16:42 Freq: Status: Active Protocol: Document 11/03/23 13:00 [facility] (Rec: 11/03/23 13:08 [facility] [id number]) Physical Therapy Assessment Goals Four Impairment weakness Short Term Goal (STG) Patient to be instructed in individualized, progressive HEP for purposes of strengthening and restoring normal scapulohumeral rhythm for left shoulder function 10/26/23: met, ongoing progression STG Duration goal met [employer] Goal (LTG) Patient to demonstrate 5/5 muscle strength left shoulder with normal scapulohumeral rhythm for restored left shoulder function LTG Duration 12/09/23 Three Impairment postural impairment Impairment forward head, rounded shoulders, IR josephine shoulders left greater than right Short Term Goal (STG) Patient to be instructed in neutral posture and exercises for postural correction 10/26/23: goal met STG Duration goal met [employer] Goal (LTG) Patient will be independent and compliant with HEP and demonstrate improved posture statically and dynamically with function LTG Duration 12/09/23 Two Impairment activity intolerance Impairment Quickdash disability index score 42% Short Term Goal (STG) Decrease score by at least 50% as measure of improved activity tolerance and function 10/26/23: no change in score STG Duration 10/25/23 [employer] Elevators Goal (LTG) Decrease score by at least 75% as measure of improved activity tolerance and function LTG Duration 12/09/23 One Impairment pain left shoulder as high as 8/10 Short Term Goal (STG) Decrease pain to no greater than 4/10 with all usual activities including reaching overhead, behind his back, and donning his coat 10/26/23: high pain level persists STG Duration 10/25/23 Mcc Goal (LTG) Decrease pain to no greater than 2/10 with all usual activities including reaching overhead, behind his back, and donning his coat. LTG Duration 12/09/23 Assessment Summary Assessment Patient AROM has improved but patient pain persists, cont to have impingement symptoms, initiated joint mob GH today with good tolerance. Good compliance to HEP Physical Therapy Plan Frequency and Duration Frequency of Treatment 2x/Week Duration of treatment (weeks) 12 Plan of Care Start Date 09/08/23 Plan of Care End Date 12/09/23 Therapeutic Interventions Therapeutic Interventions Home Exercise Program,Joint Mobilizations,Manual Therapy, Neuromuscular Re-education, Patient/Caregiver Education, Self-Care/Home Management,Soft Tissue Mobilization,Taping, Therapeutic Activities, Therapeutic Exercises Modalities Cold Pack/Ice Massage,Electric Stimulation,Hot Packs, Infrared Therapy,Iontophoresis ,Ultrasound Next Visit Focus/Plan Next Note Type Treatment Note Next Visit Plan Assess response to cold laser and iontophoresis, review PT HEP and worked on progresion with some past self ex supine and standing. Continue manual therapy for joint mob GH post and inf if tolerated well. PT POC: Consider Body Blade. Trial forearm plank to incorporate WB and core.
--- NOTE | 2023-12-15 15:51 | PT-OP ANOTE ---
Patient cancelled last 2 appointments and physician requested we discontinue PT at this time. Patient bob be discharged from PT.
== END 2024-01-04 15:00 | disposition home or self-care (01) ==
LOC: PHYS 13:00
PROVIDERS: Family Provider Family Medicine; PCP Family Medicine; Referring Provider Orthopaedic Surgery; Visit Provider Orthopaedic Surgery
DX: M25.512 Pain in left shoulder (principal); M77.8 Other enthesopathies, not elsewhere classified; R29.3 Abnormal posture; R53.1 Weakness
CPT/HCPCS: 97110; 97140; 97162; 97535

== ENCOUNTER → 2023-11-11 17:13 | Outpatient (CLI) | payer MEDICARE, OTHER, SELFPAY ==
--- NOTE | 2023-11-11 17:15 | DI.MRI.S_ITS ---
PROCEDURE: MR SHOULDER LT WO CON INDICATIONS: EVALUATE LEFT ROTATOR CUFF TEAR TECHNIQUE: Noncontrast oblique coronal T2 fast spin echo with fat saturation, oblique sagittal T1 spin echo and T2 fast spin echo with fat saturation, axial T1 spin echo and T2 fast spin echo with fat saturation through the shoulder. COMPARISON: None. FINDINGS: Image quality: Excellent. Rotator cuff: Moderate grade articular surface partial-thickness tear involving distal supraspinatus at its insertion on the humeral head is seen extending to musculotendinous junction. Low-grade bursal surface partial-thickness tear involving distal infraspinatus at its insertion on the humeral head is also seen. Low-grade partial-thickness tear involving superior fibers of distal subscapularis near its distal insertion is also seen noted . No full-thickness rotator cuff tendon rupture. Sagittal images demonstrate mild supraspinatus muscle atrophy. Bones and bursae: No bone marrow contusions or fractures. Mild to moderate acromioclavicular joint osteoarthritis with joint space narrowing and downward osteophyte formation depressing the musculotendinous junction of supraspinatus. Mild glenohumeral joint osteoarthritic changes also seen with joint space narrowing and subchondral sclerosis. There is type 1 acromion, without an os acromiale. Small amount of joint effusion and moderate amount of subacromial subdeltoid bursal fluid is seen. No gross loose bodies. Capsule and soft tissues: Fraying of superior anterior labrum with T2 hyperintense signal suggestive of superior anterior labral tear. The long head of the biceps tendon appears thickened. The rotator interval appears normal, without fibrosis. The coracohumeral ligament is normal in thickness. IMPRESSION: 1. Moderate grade articular surface partial-thickness tear involving distal supraspinatus extending to musculotendinous junction. Low-grade bursal surface partial-thickness tear involving distal infraspinatus. Low-grade partial-thickness tear involving superior fibers of distal subscapularis. No full-thickness rotator cuff tendon rupture. Mild supraspinatus muscle atrophy. 2. [id number] acromioclavicular joint osteoarthritis and mild glenohumeral joint osteoarthritis. No fracture or dislocation. Small amount of joint effusion and moderate amount of subacromial subdeltoid bursal fluid. No gross loose bodies. 3. Suggestion of superior anterior labral tear. 4. Proximal long head of biceps tendinosis. Dictated by: Wayne Palacios M.D. on 11/12/2023 at 9:23 Approved by: Wayne Palacios M.D. on 11/12/2023 at 9:34
== END ==
PROVIDERS: Family Provider Family Medicine; PCP Family Medicine; Referring Provider Orthopaedic Surgery; Visit Provider Orthopaedic Surgery
DX: M75.112 Incomplete rotator cuff tear or rupture of left shoulder, not specified as traumatic (principal); M19.012 Primary osteoarthritis, left shoulder; M25.412 Effusion, left shoulder
CPT/HCPCS: 73221